=== PATIENT | female | born 1935 | race Caucasian/White ===

== ENCOUNTER 2019-02-22 19:12 | Inpatient (IN) | payer MEDICARE, OTHER ==
[~2019-02-22] VITALS: Ht 162.6 cm; Wt 69.9 kg
[~2019-02-22 19:12] MED LIST: AVALIDE 300-121 EACH PO; COREG12.5 MG PO; COREG25 MG PO; HYDRALAZINE HCL25 MG PO; LEVOTHYROXINE300 MCG PO; XARELTO20 MG PO
--- OUTSIDE RECORDS SUMMARY | 2019-02-22 19:15 | XMS REPORT | Clinical Summary ---
Author Author [facility] Address Unknown Phone Unavailable Care Team Providers Care Rn Relief Charge Name Role Phone Asked, No Pcp PCP Unavailable Allergies Comments Active Allergy Reactions Severity Noted Date Amoxicillin-Pot Swelling High 05/10/2017 Clavulanate Water retention Irbesartan Other (See High 05/10/2017 Comments) Clarithromycin GI High 05/10/2017 Intolerance Clonidine Shortness Of High 05/10/2017 Breath nuasea Clindamycin Other (See High 05/10/2017 Comments) Severe illness Flu Vac 2015 (67 Other (See High 05/10/2017 Up)-Mf59c(Pf) Comments) Risk for jaw infection Alendronate Other (See High 05/10/2017 Comments) Levofloxacin Shortness Of High 05/10/2017 Breath Amlodipine Swelling High 05/10/2017 Penicillins Rash High 05/10/2017 Pain,shaking Nisoldipine Other (See High 05/10/2017 Comments) Nausea, dizziness,high blood pressure Hydrocodone-Guaifenesin Other (See High 05/10/2017 Comments) Medications End Date Status Medication Sig Dispensed Refills Start Date Active levothyroxine (SYNTHROID, Take 75 mcg 0 LEVOXYL) 75 mcg tablet by mouth every morning. Active carvedilol CR (COREG CR) Take 40 mg by 0 40 MG 24 hr capsule mouth daily. 20 mg at night Active rivaroxaban (XARELTO) 20 Take 20 mg by 0 mg tablet mouth nightly. Active cholecalciferol, vitamin Take 2,000 0 D3, (VITAMIN D3) 2,000 Units by unit capsule capsule mouth daily. Active Problems Not on file Social History Date Tobacco Use Types Packs/Day Years Used Never Assessed Sex Assigned at Date Recorded Not on file Industry Job Start Date Occupation Not on file Not on file Not on file Travel End Travel History Travel Start No recent travel history available. Last Filed Vital Signs Not on file Plan of Treatment Health Maintenance Due Date Last Done Comments SHINGLES VACCINES (#1) 1987 65+ PNEUMOCOCCAL VACCINE 2002 (1 of 2 - PCV13) PNEUMOCOCCAL 2002 POLYSACCHARIDE VACCINE AGE 65 AND OVER INFLUENZA VACCINE 06/12/2019 Results Not on fileafter 02/21/2018 Insurance Payer Benefit Subscriber ID Type Phone Address Plan / Group xxxxxxxxx MEDICARE MEDICARE xxxxxxxxxx Medicare [place], [place] PART A AND B Advance Directives Patient has advance care planning documents on file. For more information, alexandrea bee contact: Terry Hernandez [address] [place] [address]
[2019-02-22] MEDS ORDERED: IPRATROPIUM BROMIDE 0.02% 2.5 ML NEB NEB STA (19:28)
[2019-02-22] MEDS ORDERED: ALBUTEROL SULF 0.083% NEB SOLN 3 ML NEB NEB STA (19:28)
[2019-02-22] MEDS ORDERED: SODIUM CHLORIDE 0.9% 500ML 500 ML IV STA (19:28)
[2019-02-22] MEDS ORDERED: BUMETANIDE1 MG PO (20:34)
[2019-02-22] MEDS ORDERED: COREG3.125 MG (20:34)
[2019-02-22] MEDS ORDERED: LEVOTHYROXINE50 MCG PO (20:34)
[2019-02-22] MEDS ORDERED: LOSARTAN POTASS25 MG (20:34)
--- NOTE | 2019-02-22 20:34 | Diagnostic Imaging Report ---
EXAMINATION: CXR 2 VIEW - HOPD INDICATION: Cough. Shortness of breath. COMPARISON: None FINDINGS: TUBES and LINES: None. LUNGS: Lungs are well inflated. Bilateral peribronchial cuffing. Possible right hilar airspace opacity. PLEURA: No pleural effusion or pneumothorax. HEART AND MEDIASTINUM: Cardiac size is moderately enlarged. There are atherosclerotic calcifications within the aorta. BONES AND SOFT TISSUES: No acute osseous lesion. Soft tissues are unremarkable. UPPER ABDOMEN: No free air under the diaphragm. IMPRESSION: 1. Bilateral peribronchial cuffing, which could represent viral etiology or reactive airway disease. 2. Possible right infrahilar consolidative pneumonia. Signed by: Dr. Gabriel Carreno M.D. on 02/22/2019 8:31 PM
[2019-02-22] MEDS ORDERED: ENALAPRILAT IV INJ 1.25 MG/ML VIAL IV PRN (20:45)
[2019-02-22] MEDS ORDERED: MORPHINE SULFATE INJ 4 MG/ML INJ 1ML IV PRN (20:45)
[2019-02-22] MEDS ORDERED: ZOLPIDEM TARTRATE 5 MG TAB PO PRN (20:45)
[2019-02-22] MEDS ORDERED: DIPHENHYDRAMINE HCL INJ 50 MG/ML VIAL IV PRN (20:45)
--- OUTSIDE RECORDS SUMMARY | 2019-02-22 20:55 | XMS REPORT ---
Author [facility] Address Unknown Phone Unavailable Care Team Providers Care Carpet Or Rug Layer Helper Name Role Phone Sesar ZAMBRANO Unavailable Unavailable Problems This patient has no known problems. Allergies, Adverse Reactions, Alerts This patient has no known allergies or adverse reactions. Medications This patient has no known medications. Results Test Description Test Time Test Comments Text Results Atomic Results Result Comments CXR 2 VIEW - HOPD 2019-02-22 20:29:00 [place] [id number] Patient Name: AIDNE CLANCY MR #: [id number] : 1935 Age/Sex: 83/F Req #: [id number] Adm Physician: Ordered by: KWAN ZAMBRANO MD Report #: [id number] Location: [facility] Room/Bed: Procedure: [id number] HOPD/CXR 2 VIEW - HOPD Exam Date: 02/22/19 Exam Time: 2019 REPORT STATUS: Signed EXAMINATION: CXR 2 VIEW - HOPD INDICATION: Cough. Shortness of breath. COMPARISON: None FINDINGS: TUBES and LINES: None. LUNGS: Lungs are well inflated. Bilateral peribronchial cuffing. Possible right hilar airspace opacity. PLEURA: No pleural effusion or pneumothorax. HEART AND MEDIASTINUM: Cardiac size is moderately enlarged. There are atherosclerotic calcifications within the aorta. BONES AND SOFT TISSUES: No acute osseous lesion. Soft tissues are unremarkable. UPPER ABDOMEN: No free air under the diaphragm. IMPRESSION: 1. Bilateral peribronchial cuffing, which could represent viral etiology or reactive airway disease. 2. Possible right infrahilar consolidative pneumonia. Signed by: Dr. Flory Carreno M.D. on 02/22/2019 8:31 PM Dictated By: FLORY CARRENO MD 30 Transcribed By: NASRIN on 02/22/192030 COPY TO: KWAN ZAMBRANO MD
--- OUTSIDE RECORDS SUMMARY | 2019-02-22 20:55 | XMS REPORT | Clinical Summary ---
Author Author [facility] Organization [facility] Address Unknown Phone Unavailable Care Team Providers Care Extractive Metallurgist Name Role Phone Asked, No Pcp PCP [...] / Group xxxxxxxxx MEDICARE MEDICARE xxxxxxxxxx Medicare [place], [place] PART A AND B Advance Directives Patient has advance care planning documents on file. For more information, alexandrea bee contact: Terry Hernandez [address] [place] [address]
[2019-02-22] MEDS ORDERED: HYDRALAZINE HCL 20 MG/ML VIAL IV STA (20:58)
[2019-02-22] MEDS ORDERED: NITROGLYCERIN 2% OINT 1 GM PKT TOP ONE (21:00)
--- NOTE | 2019-02-22 21:16 | NUR ---
pt refusing medication for lowering BP and only wants bp medication from home. waiting for BP meds from pharmacy from across the street in order to get pt's BP lowered in order to get pt admitted across the street.
[2019-02-22] MEDS ORDERED: CARVEDILOL 12.5 MG TAB ONE (21:21)
--- NOTE | 2019-02-22 21:45 | NUR ---
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 Pt was given the gentamycin that was brought over by the main ER. Pt is refusing the enalapril at this time. Took a manual BP per their request as they stated the monitor BP was wrong and manual BP was 198/118. Monitor BP is charted which was 203/118.
[2019-02-22] MEDS: GENTAMICIN 80MG/NS IV SCH (21:50)
[2019-02-22] MEDS ORDERED: AZTREONAM 2 GM VIAL IV SCH (22:00)
--- NOTE | 2019-02-22 22:42 | NUR ---
Pt BP is 204/97, pt daughter is refusing to let the pt have IV BP medication so she is giving the pt her PO 50 mg of Losartan. I explained to the pt and the daughter that we really do not like pts taking their own medication and the daughter became defensive and stated that Dr. Arellano told her that they are allowed to because she has so many allergies. I explained that I am sure that she has alot of allergies but so do many other people and I have rarely seen cases where pts take their own meds unless it is a rare medication that pharmacies do not carry. Daughter became very defensive and stated that she has been doing this a long time and she does not want her mother to have another stroke so she will give medications to get the BP down and they will not take any other medication.
[2019-02-22] MEDS: CARVEDILOL 40 MG CAPCR PO SCH (22:56)
--- NOTE | 2019-02-22 23:50 | NUR ---
Family brought their own manual BP cuff and stethoscope and took the BP and stated that the BP is 152/78 and RN took the manual BP and got a reading of 178/92. Family scoffed and said that this should be good enough to go across the street to her room, I explained to the family that I would call report and see.
[2019-02-23] VITALS (8 sets, daily range): BP systolic 137–193; BP diastolic 74–93
--- NOTE | 2019-02-23 00:07 | NUR ---
Report to JANNA Soto
--- NOTE | 2019-02-23 00:08 | NUR ---
Called [facility] for transport to [facility] to go to room 176
[2019-02-23] MEDS: IPRATROPIUM BROMIDE 0.02% 2.5 ML NEB NEB SCH ×4 (00:20→19:42)
--- NOTE | 2019-02-23 00:35 | NUR ---
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
[2019-02-23] MEDS ORDERED: ALBUTEROL SULF 0.083% NEB SOLN 3 ML NEB NEB SCH (01:00)
--- NOTE | 2019-02-23 01:17 | NUR ---
patients blood pressure is 193/91. patients son states he will give the patient her home medication blood pressure pill. patient's son does not want mother to use prn blood pressure medication at this time. will continue to monitor patients blood pressure.
--- NOTE | 2019-02-23 01:17 | NUR ---
patient is a new admit that arived via stretcher. patient is awake and talking. patient has been transferred into bed. bed is in lowest position and call hull is within reach. will continue to monitor patient.
[2019-02-23 02:59] LABS: CREATINE KINASE MB 1.1 ng/mL (0-5.0)
--- NOTE | 2019-02-23 04:00 | NUR ---
patients blood pressure is now 141/93. will continue to monitor patients blood pressure.
--- NOTE | 2019-02-23 06:55 | NUR ---
report given to day nurse. patient is resting comfortably in bed. bed is in lowest position and call light is within reach.
--- NOTE | 2019-02-23 06:58 | NUR ---
6am antibiotic is not available in facility. awaiting for pharmacist to arrive to make aware of situation.
[2019-02-23 07:03] LABS: BASOPHILS % 0.2 % (0.0-1.0); EOSINOPHILS % 0.4 % (0.0-6.0); HEMATOCRIT 37.3 % (34.2-44.1); HEMOGLOBIN 12.5 g/dL (12.0-16.0); LYMPHOCYTES # (AUTO) 1.5 (1.0-3.2); LYMPHOCYTES % 30.6 % (18.0-39.1); MEAN CORPUSCULAR HEMOGLOBIN 30.6 pg (28-32); MEAN CORPUSCULAR HGB CONC 33.5 g/dL (31-35); MEAN CORPUSCULAR VOLUME 91.4 fL (81-99); MONOCYTES # (AUTO) 0.9 (0.2-0.8); MONOCYTES % 18.2 % (4.4-11.3); NEUTROPHILS # (AUTO) 2.4 (2.1-6.9); NEUTROPHILS % 50.4 % (38.7-80.0); PLATELET COUNT 165 x10e3/uL (140-360); RED BLOOD COUNT 4.08 x10e6/uL (3.6-5.1)
[2019-02-23 07:23] LABS: ANION GAP 9.5 mmol/L (8-16); BLOOD UREA NITROGEN 6 mg/dL (7-26); BUN/CREATININE RATIO 11 (6-25); CALCIUM 8.7 mg/dL (8.4-10.2); CARBON DIOXIDE 25 mmol/L (22-29); CHLORIDE 97 mmol/L (98-107); CREATININE, SERUM 0.57 mg/dL (0.57-1.11); EST GLOMERULAR FILTRATION RATE > 60 ML/MIN (60-); GLUCOSE 98 mg/dL (74-118); POTASSIUM 3.5 mmol/L (3.5-5.1); SODIUM 128 mmol/L (136-145)
--- NOTE | 2019-02-23 07:23 | NUR ---
Notified Dr. rAellano, who is rounding now, that pt meets inpatient per [facility] guidelines. Requested inpatient order if he agrees.
--- NOTE | 2019-02-23 07:37 | History and Physical ---
An 83-year-old female comes with cough, congestion and altered mental status. HISTORY OF PRESENT ILLNESS: . Bre Brooks who went [place] the [place] on [place] started with some cough which was dry and chest pain and had some shortness of breath and the patient came with moderate amount of illness and sick appearing. Came to emergency room, was found to have chest discomfort and difficulty breathing, fever and chills and questionable altered mental status. The patient then was admitted to the hospital for pneumonia. PAST MEDICAL HISTORY: 1. History of chronic lymphoma. 2. History of hypertension. 3. History of atrial fibrillation. 4. History of hypothyroidism. MEDICINES: She takes at home are: 1. Bumex 1 mg daily. 2. Coreg mg daily. 3. Levothyroxine 50 mcg daily. 4. Losartan 25 mg daily. 5. Xarelto 20 mg daily. SURGICAL HISTORY: History of hysterectomy. ALLERGIES: THE PATIENT IS ALLERGIC TO ACETAMINOPHEN, ALENDRONATE, AMLODIPINE, AMOXICILLIN, AZITHROMYCIN, CEPHALEXIN, CLARITHROMYCIN, CLAVULANIC ACID, CLONIDINE, HYDROCODONE, IRBESARTAN AND FOR ADDITIONAL INFORMATION, PLEASE LOOK INTO THE CHART. FAMILY HISTORY: Positive for hypertension only. No heart disease. REVIEW OF SYSTEMS: Positive for chest pain. Some shortness of breath. No nausea, vomiting, or diarrhea. No constipation. No rectal bleeding. No hematochezia. No hematemesis. PHYSICAL EXAMINATION: GENERAL: On examination, the patient is sick appearing. VITAL SIGNS: Temperature is 100.0, T-max was 100.0, pulse of 103, respirations of 22, blood pressure is 178/92, pulse oximetry of 94% on 2 L of oxygen. HEENT: Normocephalic, atraumatic. Pupils are reactive to light and accommodation. CVS: S1 and S2, regular. ABDOMEN: Nontender, nondistended. EXTREMITIES: No clubbing, no cyanosis, no edema. LUNGS: Bilateral rhonchi present and also increased rhonchi on the right side. LABORATORY VALUES: Initial white count which was done in the outside ER was 4. Hemoglobin was 12. Chemistries were all normal. Cardiac enzymes were also normal. The patient's chest x-ray showed infiltrate in right middle lobe. EKG shows tachycardia, atrial fibrillation, rate of 92. ASSESSMENT: 1. Pneumonia. Plan: The patient is allergic to multiple medications, was given Azactam 2 g and also gentamicin q.12 hours. We will continue the same medications at this time. Albuterol and Atrovent will be given. The patient does complain some tachycardia, we might switch her to Xopenex. 2. History of hypertension. Continue with home medication. For atrial fibrillation, continue with Xarelto. Further recommendation and clinical course: The patient will have a chest x-ray in the morning tomorrow inpatient. Disposition will be depending on the chest x-ray findings tomorrow. Again, the patient has bacterial lobar pneumonia with hypoxemia and history of atrial fibrillation. The patient will be kept inpatient. MD VIKTORIYA Augustine/MODL /[id number]
--- NOTE | 2019-02-23 07:44 | NUR ---
patient's BP 191/83, Refusing any PRN bp medications, she stating that " I used to check my BP and use my own BP medications for that, PRN BP medication will drop my BP down". notified Dr Arellano, he said he aware about of that patient is very specific to take BP medications.
--- NOTE | 2019-02-23 08:21 | NUR ---
CHANGED TO INPATIENT ORDERED
[2019-02-23] MEDS: FAMOTIDINE 20 MG/2 ML VIAL IV SCH ×2 (08:36→16:50)
[2019-02-23] MEDS: CARVEDILOL 40 MG CAPCR PO SCH ×2 (08:36→17:00)
[2019-02-23] MEDS: LOSARTAN POTASSIUM 100 MG TAB PO SCH ×2 (08:37→17:00)
[2019-02-23] MEDS ORDERED: SODIUM CHLORIDE 0.9% 250ML 250 ML ONE (08:58)
[2019-02-23] MEDS: AZTREONAM 2GM/NS 100ML 100 ML IV SCH ×2 (09:13→16:52)
[2019-02-23] MEDS: LEVALBUTEROL HCL SOLN NEBU 0.63 MG/3 ML NEB INH SCH ×3 (10:00→19:42)
[2019-02-23] MEDS: ONDANSETRON HCL INJ 2MG/ML 2ML 2 MG/ML VIAL IV PRN ×2 (10:23→17:17)
[2019-02-23 10:32] LABS: CREATINE KINASE MB 0.9 ng/mL (0-5.0)
--- NOTE | 2019-02-23 19:00 | NUR ---
received report from day nurse. patient is resting comfortably in bed. bed is in lowest position and call light is within reach.
--- NOTE | 2019-02-23 20:00 | NUR ---
patient reports feeling nausea. patient's daughter states current anti-nausea medicine is not effective. MD notified via phone. received new orders for promethazine prn.
[2019-02-23] MEDS ORDERED: PROMETHAZINE 12.5MG/ NACL 0.9% 12.5 MG/50 ML BAG IV PRN (20:30)
[2019-02-23] MEDS: GENTAMICIN 80MG/NS IV SCH (21:51)
[2019-02-24] VITALS (8 sets, daily range): BP systolic 163–189; BP diastolic 75–113
[2019-02-24] MEDS: AZTREONAM 2GM/NS 100ML 100 ML IV SCH ×3 (00:42→17:04)
[2019-02-24] MEDS: LEVALBUTEROL HCL SOLN NEBU 0.63 MG/3 ML NEB INH SCH ×3 (01:10→15:15)
[2019-02-24] MEDS: IPRATROPIUM BROMIDE 0.02% 2.5 ML NEB NEB SCH ×4 (01:10→19:10)
[2019-02-24 05:36] LABS: BASOPHILS % 0.5 % (0.0-1.0); EOSINOPHILS % 0.5 % (0.0-6.0); LYMPHOCYTES # (AUTO) 1.3 (1.0-3.2); LYMPHOCYTES % 33.1 % (18.0-39.1); MEAN CORPUSCULAR HEMOGLOBIN 30.5 pg (28-32); MEAN CORPUSCULAR HGB CONC 33.3 g/dL (31-35); MEAN CORPUSCULAR VOLUME 91.4 fL (81-99); MONOCYTES # (AUTO) 0.8 (0.2-0.8); MONOCYTES % 20.9 % (4.4-11.3); NEUTROPHILS # (AUTO) 1.7 (2.1-6.9); NEUTROPHILS % 44.7 % (38.7-80.0); PLATELET COUNT 158 x10e3/uL (140-360); RED BLOOD COUNT 3.94 x10e6/uL (3.6-5.1); RED CELL DISTRIBUTION WIDTH 12.9 % (11.7-14.4)
[2019-02-24 05:50] LABS: ANION GAP 8.4 mmol/L (8-16); BLOOD UREA NITROGEN 7 mg/dL (7-26); BUN/CREATININE RATIO 12 (6-25); CALCIUM 8.5 mg/dL (8.4-10.2); CARBON DIOXIDE 25 mmol/L (22-29); CHLORIDE 99 mmol/L (98-107); CREATININE, SERUM 0.57 mg/dL (0.57-1.11); EST GLOMERULAR FILTRATION RATE > 60 ML/MIN (60-); GLUCOSE 93 mg/dL (74-118); POTASSIUM 3.4 mmol/L (3.5-5.1); SODIUM 129 mmol/L (136-145)
--- NOTE | 2019-02-24 06:57 | NUR ---
report given to day nurse. patient is resting comfortably in bed. bed is in lowest position and call light is within reach.
[2019-02-24] MEDS: CARVEDILOL 40 MG CAPCR PO SCH ×2 (09:00→17:00)
[2019-02-24] MEDS: FAMOTIDINE 20 MG/2 ML VIAL IV SCH ×2 (09:00→17:00)
[2019-02-24] MEDS: LOSARTAN POTASSIUM 100 MG TAB PO SCH ×2 (09:00→17:00)
--- NOTE | 2019-02-24 09:05 | Diagnostic Imaging Report ---
EXAMINATION: CHEST 2 VIEWS INDICATION: Pneumonia. COMPARISON: Multiple prior chest radiographs, most recently 02/22/2019. FINDINGS: TUBES and LINES: None. LUNGS: Lungs are well inflated. There are increasing patchy bilateral lower lung zone opacities. There is central vascular congestion. PLEURA: No pleural effusion or pneumothorax. HEART AND MEDIASTINUM: Cardiac size is moderately enlarged. There are atherosclerotic calcifications within the aorta. Enlarged bilateral main pulmonary arteries, not significantly changed from radiograph on 04/02/2017. BONES AND SOFT TISSUES: No acute osseous abnormality. UPPER ABDOMEN: No free air under the diaphragm. IMPRESSION: Increasing opacities in the lower lung zones, which may represent pneumonia in the appropriate clinical setting. Suggest follow-up chest radiograph in 6-8 weeks to assess for resolution. Signed by: Dr. Angel Muniz MD on 02/24/2019 9:01 AM
--- NOTE | 2019-02-24 09:14 | NUR ---
patients family giving all home meds without using hospital meds with exception of antibiotics. instructed family to let me know what they have given patient and expressed that all BP problems and associated side effects or lack thereof will be their responsibility and not that of the hospital or doctors or nurses. they acknowledged the verbal info given.
--- NOTE | 2019-02-24 10:01 | Progress Note ---
DATE: SUBJECTIVE: This is an 83-year-old female presenting with pneumonia. Currently, the patient had some difficulty with cognitive status yesterday after Phenergan was given. We will discontinue the Phenergan. The patient's nausea is controlled currently on 2 antibiotics Azactam and gentamicin. Better as per family. She was ambulating yesterday. No chest pain. Positive for shortness of breath. Positive for some audible wheezes too. PHYSICAL EXAMINATION: VITAL SIGNS: Temperature is 96.9, blood pressure is 174/75, pulse oximetry of 95% on 3 L of oxygen. GENERAL: Frail, weak, healthy lady. HEENT: Normocephalic, atraumatic. Pupils are reactive to light and accommodation. CVS: S1 and S2. Irregular rhythm. Irregularly irregular. ABDOMEN: Nontender and nondistended. EXTREMITIES: No clubbing, no cyanosis, trace edema, and positive for crackles and rhonchi in bilateral lung petty. LABORATORY VALUES: Today's values are pending. Chemistries are pending today. Toxicology, gentamicin trough is also pending. Chest x-ray has been ordered and pending. ASSESSMENT AND PLAN: 1. Pneumonia. 2. Probably viral nature. We will continue with Xopenex treatment for respiratory status and oxygen for hypoxia. 3. Encephalopathy secondary to medications. We will stop the Phenergan at this time. Continue with Zofran. Physical therapy for rehabilitation. Further recommendation per clinical course. We will continue to monitor the patient. The patient has been switched to inpatient. Awaiting labs today. The patient also has hyponatremia, which will be rechecked today. MD VIKTORIYA Augustine/MODL /[id number]
[2019-02-24] MEDS ORDERED: ONDANSETRON HCL 4 MG ORAL DISINTEGRATING TAB PO PRN (16:45)
--- NOTE | 2019-02-24 20:00 | NUR ---
INITIAL ASSESSMENT COMPLETE, PT IN BED, O2 ON, TELE ON, PT B/P HIGH, PT TAKING OWN MEDICATIONS, DR AWARE, PT AND FAMILY AWARE THEY ARE RESPONSIBLE FOR OUTCOMES, WILL RECHECK B/P, CALL LIGHT IN REACH, FAMILY MEMBER IN ROOM, NO DISTRESS NOTED
--- NOTE | 2019-02-24 20:35 | NUR ---
RECHECK ON B/P, /, FAMILY IS REFUSING MEDICATIONS, SON TO COME AND RECHECK B/P HIMSELF, HE IS A .
[2019-02-24] MEDS: GENTAMICIN 80MG/NS IV SCH (22:00)
[2019-02-25] VITALS (8 sets, daily range): BP systolic 172–193; BP diastolic 78–99
[2019-02-25] MEDS: AZTREONAM 2GM/NS 100ML 100 ML IV SCH ×3 (01:00→16:19)
[2019-02-25] MEDS: IPRATROPIUM BROMIDE 0.02% 2.5 ML NEB NEB SCH ×4 (03:02→20:35)
[2019-02-25] MEDS: LEVALBUTEROL HCL SOLN NEBU 0.63 MG/3 ML NEB INH SCH ×4 (03:02→20:35)
[2019-02-25 05:23] LABS: BASOPHILS % 0.2 % (0.0-1.0); EOSINOPHILS # (AUTO) 0.1 (0.0-0.4); EOSINOPHILS % 2.5 % (0.0-6.0); HEMATOCRIT 37.9 % (34.2-44.1); HEMOGLOBIN 12.6 g/dL (12.0-16.0); LYMPHOCYTES # (AUTO) 1.7 (1.0-3.2); LYMPHOCYTES % 31.2 % (18.0-39.1); MEAN CORPUSCULAR HGB CONC 33.2 g/dL (31-35); MEAN CORPUSCULAR VOLUME 93.1 fL (81-99); MONOCYTES # (AUTO) 0.8 (0.2-0.8); MONOCYTES % 14.7 % (4.4-11.3); NEUTROPHILS # (AUTO) 2.8 (2.1-6.9); NEUTROPHILS % 51.2 % (38.7-80.0); PLATELET COUNT 165 x10e3/uL (140-360); RED BLOOD COUNT 4.07 x10e6/uL (3.6-5.1); RED CELL DISTRIBUTION WIDTH 12.9 % (11.7-14.4)
[2019-02-25 05:43] LABS: ANION GAP 11.2 mmol/L (8-16); BLOOD UREA NITROGEN 9 mg/dL (7-26); BUN/CREATININE RATIO 14 (6-25); CALCIUM 8.8 mg/dL (8.4-10.2); CARBON DIOXIDE 28 mmol/L (22-29); CHLORIDE 98 mmol/L (98-107); CREATININE, SERUM 0.63 mg/dL (0.57-1.11); EST GLOMERULAR FILTRATION RATE > 60 ML/MIN (60-); GLUCOSE 88 mg/dL (74-118); POTASSIUM 4.2 mmol/L (3.5-5.1); SODIUM 133 mmol/L (136-145)
--- NOTE | 2019-02-25 06:40 | NUR ---
rounded with commercial installer, patient aware of change with family at bedside. call hull within reach and bed in lowest position.
[2019-02-25] MEDS ORDERED: GUAIFENESIN 200 MG/10 ML UDC PO PRN (06:45)
--- NOTE | 2019-02-25 07:01 | Progress Note ---
DATE: ADDENDUM: The patient also has dehydration with hyponatremia, hypovolemic. We will continue watching her volume status and check her BMP tomorrow. MD VIKTORIYA Augustine/MODL /[id number]
--- NOTE | 2019-02-25 07:10 | NUR ---
spoke with patient and daughter concerning medications, per patient and daughter they will be taking their own medications and will only accept IV antibiotics from the hospital. re-educated the patient and family concerning the medications and they verbalized understanding.
--- NOTE | 2019-02-25 07:16 | Progress Note ---
DATE: SUBJECTIVE: The patient has been admitted for pneumonia. The patient had a chest x-ray yesterday, which shows increasing bibasilar opacities denoting pneumonia. The patient also does feel short of breath, positive for wheezing audible and also positive for shortness of breath on exertion. She is on 3 L of oxygen currently and hypoxic. Currently still coughing, still congested. OBJECTIVE: VITAL SIGNS: Temperature is 98, afebrile for the last 48 hours, pulse of 68, respirations of 16, blood pressure is 188/99. The patient is saturating at 96% to 97% on 3 L of oxygen and nasal cannula. HEENT: Normocephalic, atraumatic. Pupils are reactive to light and accommodation. CVS: S1, S2. Regular. LUNGS: Positive for rhonchi bilaterally. Positive for inspiratory wheezes. ABDOMEN: Nontender, nondistended. EXTREMITIES: No clubbing, no cyanosis, and trace edema. LABORATORY VALUES: White count is 5.51, hemoglobin of 12.6, hematocrit of 37.9. Chemistry, sodium of 133, potassium 4.2. Toxicology, gentamicin is pending. MEDICATIONS: She is on at this time are levalbuterol, ipratropium, Azactam, carvedilol, losartan, morphine sulfate as needed, Vasotec as needed, and zolpidem 5 mg. IMAGING: The patient's imaging studies from yesterday shows increasing opacity of the lower lung zone, which may represent pneumonia in the appropriate clinical setting. Followup radiograph in 6 to 8 weeks. ASSESSMENT: 1. Pneumonia. 2. Acute respiratory hypoxia. Plan is to continue with 3 L of oxygen, and give her levalbuterol and ipratropium treatment. The patient also needs an acapella. 3. Encephalopathy secondary to medications. Phenergan has been stopped. 4. Atrial fibrillation. Continue on Xarelto. 5. Hypertension. Continue with antihypertensive medication. 6. History of lymphoma. We will continue to monitor the patient along with medications. Further recommendation and clinical course. The patient has a DVT prophylaxis with Xopenex and also will give GI prophylaxis with Pepcid. Further recommendation per clinical course. MD VIKTORIYA Augustine/MODLadi /[id number]
[2019-02-25] MEDS: FAMOTIDINE 20 MG/2 ML VIAL IV SCH ×2 (09:00→15:39)
[2019-02-25] MEDS: CARVEDILOL 40 MG CAPCR PO SCH ×2 (09:00→15:39)
[2019-02-25] MEDS: LOSARTAN POTASSIUM 100 MG TAB PO SCH ×2 (09:00→15:39)
--- NOTE | 2019-02-25 15:45 | NUR ---
report given to nurse for patient transfer. patient aware of change, alert and oriented. patient will travel via hospital bed
[2019-02-25] MEDS ORDERED: SODIUM CHLORIDE 0.9% 250ML 250 ML ONE (16:08)
--- NOTE | 2019-02-25 16:15 | NUR ---
RECEIVED PATIENT FROM OBS. PATIENT A/O X3, EVEN RESPIRATIONS ON 2LNC. TELE RUNNING AFIB. RIGHT HAND [address]. SKIN INTACT, NO EDEMA. PATIENT AMBULATORY WITH WALKER AND ASSISTANCE. PATIENT HAS A COUGH FREQUENTLY, CURRENTLY RECEIVING IV ANTIBIOTICS. CALL LIGHT IN REACH WILL CONTINUE TO MONITOR.
--- NOTE | 2019-02-25 20:10 | NUR ---
Assessment done.no resp.distress.no pain voiced.still coughing and wheezing.getting breathing treatment.nasal cannula 2l O2 on flow.ambulates with walker and stand by assistance.voided.iv left hand #22 g is patent.bed locked and in lowest position.phone and call light within reach.instructed to call for assistance as needed.bp noted 180/96.refused to take medications for high blood pressure .taking her own medications.keep monitor the pt.
[2019-02-25] MEDS: GENTAMICIN 80MG/NS IV SCH (22:29)
[2019-02-26] VITALS (12 sets, daily range): BP systolic 142–206; BP diastolic 69–102
[2019-02-26] MEDS: AZTREONAM 2GM/NS 100ML 100 ML IV SCH ×3 (00:40→16:19)
[2019-02-26] MEDS: IPRATROPIUM BROMIDE 0.02% 2.5 ML NEB NEB SCH ×4 (04:00→19:10)
[2019-02-26] MEDS: LEVALBUTEROL HCL SOLN NEBU 0.63 MG/3 ML NEB INH SCH ×4 (04:00→19:05)
--- NOTE | 2019-02-26 04:00 | NUR ---
Assisted to ambulate.back to bed safely.still coughing.refused cough medicine.
[2019-02-26 06:47] LABS: ANION GAP 8.9 mmol/L (8-16); BLOOD UREA NITROGEN 9 mg/dL (7-26); BUN/CREATININE RATIO 16 (6-25); CALCIUM 8.9 mg/dL (8.4-10.2); CARBON DIOXIDE 29 mmol/L (22-29); CHLORIDE 101 mmol/L (98-107); CREATININE, SERUM 0.56 mg/dL (0.57-1.11); EST GLOMERULAR FILTRATION RATE > 60 ML/MIN (60-); GLUCOSE 82 mg/dL (74-118); POTASSIUM 3.9 mmol/L (3.5-5.1); SODIUM 135 mmol/L (136-145)
--- NOTE | 2019-02-26 06:50 | NUR ---
Report given to oncoming rn.walking rounds done.stable condition.
[2019-02-26] MEDS: LOSARTAN POTASSIUM 100 MG TAB PO SCH ×3 (07:28→15:58)
[2019-02-26] MEDS: FAMOTIDINE 20 MG/2 ML VIAL IV SCH ×2 (07:28→15:57)
[2019-02-26] MEDS: CARVEDILOL 40 MG CAPCR PO SCH ×2 (07:28→15:57)
--- NOTE | 2019-02-26 09:47 | Progress Note ---
DATE: SUBJECTIVE: The patient is here for pneumonia. The patient is currently still fatigued, tired, and has not walked. The patient complains of shortness of breath on exertion. The patient is getting ipratropium and levalbuterol treatments every 6 hours and is on gentamicin and Azactam. OBJECTIVE: VITAL SIGNS: Temperature is 97.6, blood pressure is 187/72, pulse of 75, and pulse oximeter of 97 on 2 L of oxygen. HEENT: Normocephalic, atraumatic. Looks debilitated, weak, and tired. CVS: S1, S2. Regular. ABDOMEN: Nontender, nondistended. LUNGS: Positive for rhonchi bilaterally. EXTREMITIES: No clubbing. No cyanosis. No edema. LABORATORY VALUES: White count has been normal. Chemistries, sodium 135, potassium 3.9, BUN 8.9, creatinine of 9. Gentamicin trough is 1.1. MEDICATIONS: Levalbuterol, ipratropium, Azactam, gentamicin, carvedilol, losartan, guaifenesin, morphine sulfate as needed, and zolpidem 5 mg at nighttime. MICROBIOLOGY: No growth of blood cultures in the last 72 hours. Sputum culture grew normal respiratory raisa. IMAGING: Done on 02/24 shows worsening of pneumonia. ASSESSMENT: 1. Pneumonia. 2. Acute respiratory failure with hypoxia. Continue on oxygen. 3. Atrial fibrillation, continue on Xarelto. 4. Hypertension, continue on carvedilol and ARBs. 5. History of lymphoma. We will continue with medication and the patient has deep vein thrombosis prophylaxis and gastrointestinal prophylaxis with Pepcid. Further recommendation per clinical course. The plan and disposition, we will try to get the patient walking today. Physical Therapy to work on her and discharge home with home health in 1 to 2 days. We will continue to monitor the patient with progression of therapy. MD VIKTORIYA Augustine/ETIENNE /[id number]
--- NOTE | 2019-02-26 12:52 | NUR ---
CASE MANAGEMENT ASSESSMENT Head Cleaning Porter to bedside to discuss plan of care with patient/family. CM/SW role and care transitions discussed. Anticipated discharge plan discussed along with duration of care. CM/SW discussed patients right to make decisions in care. CM/SW work hours given. Patient lives: with Admit/Transfer: thru ED Hospital/ER visits since last admit: 0 POA/Emergency contact: daughter Annetta Brooks [phone] Current/Previous Home Health: none PCP/Follow-up Care: Dr. Sridhar Arellano; advised pt to follow up with MD within a week of discharge. Current/Previous DME: has a walker that she uses as needed Medications (referring to index hospitalization or the first time you were in the hospital) a. Were changes made in your medications when you were in the hospital on [date of index hospitalization]? n/a b. Did you understand the changes? n/a c. Were you able to obtain your new medications right away? n/a d. Were you able to take your medications like the doctor wanted you to? n/a e. Did the hospital give you an accurate, easy to understand list of medications when you left? n/a Scale of 1-10 how comfortable does patient feel with disease management in outpatient settin Other Services: none Employment Status: retired Areas of Concerns: pneumonia Referral Needs: may need home health Education Needs: pneumonia, medical management IMM/NICHOLS given and signed (if applicable): none at this time Goal for discharge: home with home health CM/SW left business card at the bedside with contact information. Name and number was also written on the patients whiteboard. Patient verbalized understanding of discussion. CM will follow-up with ongoing discharge and transition of care needs.
--- NOTE | 2019-02-26 18:25 | NUR ---
PT BP 198/91 PT TOOK OWN LOSARTAN 25MG FROM HOME. TOOK COREG 40 MG AND XARELTO 15 MG AT 1750. REFUSES PRN ENALAPRIL. DR. FARNSWORTH NOTIFIED STATES OK TO TAKE OWN HOME MEDS AND CONTINUE TO MONITOR PT. Addendum: 02/26/19 at 1828 by Saida Alfaro RN PT STATES SHE REFUSES MEDS DUE TO LONG MEDICATION ALLERGY AND FEAR OF BP DROPPING PREVIOUS EXPERIENCE CAUSED BP TO RAPIDLY DROP AND THEN HAD CVA.
--- NOTE | 2019-02-26 18:57 | NUR ---
BEDSIDE SHIFT REPORT RECEIVED FROM Aby DRUMMOND RN. RECEIVED PT LAYING SEMI FOWLERS IN BED, AAOX3, RR EVEN AND NON-LABORED, RECEIVING NEB TREATMENT. LEFT PT LAYING SEMI FOWLERS IN BED, BED IN LOW LOCKED POSITION, SIDE RAILS UPX2, CALL LIGHT AND PHONE WITHIN REACH.
[2019-02-26] MEDS: GENTAMICIN 80MG/NS 100 ML 100 ML IV SCH (21:14)
[2019-02-27] VITALS (7 sets, daily range): BP systolic 164–201; BP diastolic 77–111
[2019-02-27] MEDS: LEVALBUTEROL HCL SOLN NEBU 0.63 MG/3 ML NEB INH SCH ×4 (00:20→19:00)
[2019-02-27] MEDS: IPRATROPIUM BROMIDE 0.02% 2.5 ML NEB NEB SCH ×4 (00:20→19:00)
[2019-02-27] MEDS: AZTREONAM 2GM/NS 100ML 100 ML IV SCH ×3 (00:26→17:08)
[2019-02-27 06:10] LABS: BLOOD UREA NITROGEN 8 mg/dL (7-26); BUN/CREATININE RATIO 13 (6-25); CALCIUM 9.4 mg/dL (8.4-10.2); CARBON DIOXIDE 29 mmol/L (22-29); CHLORIDE 98 mmol/L (98-107); CREATININE, SERUM 0.62 mg/dL (0.57-1.11); EST GLOMERULAR FILTRATION RATE > 60 ML/MIN (60-); GLUCOSE 88 mg/dL (74-118); SODIUM 134 mmol/L (136-145)
[2019-02-27] MEDS: LOSARTAN POTASSIUM 100 MG TAB PO SCH ×2 (07:40→17:00)
[2019-02-27] MEDS: FAMOTIDINE 20 MG/2 ML VIAL IV SCH ×2 (07:40→17:00)
--- NOTE | 2019-02-27 07:54 | Progress Note ---
DATE: SUBJECTIVE: This is an 83-year-old female comes in with pneumonia. The patient is feeling slightly better. Still coughing, still congested and also short of breath on exertion. The patient medications include aztreonam, Azactam, Vasotec, gentamicin, guaifenesin, ipratropium, levalbuterol, and zolpidem. OBJECTIVE: VITAL SIGNS: Currently vital signs temperature is 96.4, afebrile, pulse of 88, respiration of 20, blood pressure has been running 172/77. The patient has been taken home medications, has been refusing clonidine p.r.n. O2 at 1 L. HEENT: Normocephalic, atraumatic. Pupils are reactive to light and accommodation. CVS: S1, S2. Irregular. ABDOMEN: Nontender, nondistended. EXTREMITIES: No clubbing, no cyanosis, no edema. LUNGS: Positive for rhonchi. Decreased rhonchi bilaterally and the patient is feeling better. LABORATORY VALUES: All normal. Chemistries, sodium of 134, potassium is , chloride of 98, BUN of 8, and creatinine 0.6. ASSESSMENT: 1. Pneumonia. The patient is symptomatically better. 2. Acute respiratory failure with hypoxia. Continue oxygen. 3. Atrial fibrillation. Continue on Xarelto. 4. Sepsis. Continue with antibiotics. 5. History of lymphoma. Continue with monitoring the patient and we will continue the patient on all her home medications for hypertension and for atrial fibrillation. 6. Disposition. The patient can be possibly discharged home tomorrow with physical therapy and home health. Further recommendation per clinical course, and the patient also has physical therapy at this time. MD VIKTORIYA Augustine/MODL /[id number]
[2019-02-27] MEDS: CARVEDILOL 40 MG CAPCR PO SCH ×2 (09:00→17:00)
--- NOTE | 2019-02-27 11:30 | NUR ---
Spoke with pt regarding home health order. She stated she wants to use the same home health her has but does not remember the name. Asked CM to call her daughter. Received phone call from pt's daughter Annetta who informed CM that her dad has [facility]. CM spoke to pt at bedside and informed her of home health company. She signed choice letter. Signed letter placed in chart. Copy to pt.
--- NOTE | 2019-02-27 13:14 | NUR ---
PT BP 192/80, TOOK HER OWN MED FROM HOME LOSARTAN 50 MG AT THIS TIME. REFUSES PRN BP MEDS.
--- NOTE | 2019-02-27 17:00 | NUR ---
PT BP 174/100 AGREED TO TAKE PRN VASOTEC 1.25 MG IV AT THIS TIME AFTER SPEAKING WITH SON, "DR. CLANCY", CHIROPRACTOR.
--- NOTE | 2019-02-27 17:30 | NUR ---
RECHECK BP 178/100 PT TOOK OWN HOME MED COREG 40MG AT THIS TIME. SPOKE TO SON "DR. CLANCY" AND SON ADVISED HER TO TAKE COREG BUT NOT TO TAKE ANY MORE BP MEDS.
--- NOTE | 2019-02-27 18:30 | NUR ---
BP NOW 210/100 PT REFUSES TO TAKE ADDITIONAL BP MEDS. NOTIFIED DR. FARNSWORTH, STATES THERE IS NOTHING WE CAN DO IF PT REFUSES. CONTINUE TO MONITOR PT.
[2019-02-27] MEDS: GENTAMICIN 80MG/NS 100 ML 100 ML IV SCH (20:46)
--- NOTE | 2019-02-27 20:56 | NUR ---
Dr. Arellano notified on patient's elevated blood pressure, orders received for Hydralazine 10mg IV Q4 PRN Addendum: 02/27/19 at 2056 by KB WATSON RN Orders received for Hydralazine 5 mg IV Q4
[2019-02-27] MEDS ORDERED: HYDRALAZINE HCL 20 MG/ML VIAL IV PRN (21:00)
--- NOTE | 2019-02-27 22:02 | NUR ---
Patient's BP reassessed and remains elevated. She is also c/o SOB, offered but refused neb treatments and doesn't want to take any more blood pressure medications. Oxygen provided via nasal cannula. Did inform the patient risks behind refusing any treatment and states she understands this risks. All the patient wants at this time is an ice pack placed on her head for headache.
--- NOTE | 2019-02-27 22:13 | NUR ---
Dr. Arellano informed on patient having 3 consecutive PVC's and how she refused any treatment at this time.
--- NOTE | 2019-02-28 00:20 | NUR ---
Blood pressure reassessed and remains elevated. I recommend in taking some medication to help lower blood pressure but the patient refused any at this time, stated she feels perfectly fine. Son who is a chiropractor is in the room with the patient and stated he also has been taking her blood pressure. The readings that he has been getting are within 170's (SB). I did state I took it twice and both times SB was over 200 and DB over 90. I also mentioned she has been running A fib w/ PVCs but patient and son is still refusing any treatment at this time.
[2019-02-28] MEDS: LEVALBUTEROL HCL SOLN NEBU 0.63 MG/3 ML NEB INH SCH ×2 (01:00→07:00)
[2019-02-28] MEDS: IPRATROPIUM BROMIDE 0.02% 2.5 ML NEB NEB SCH ×2 (01:00→07:00)
[2019-02-28] MEDS: AZTREONAM 2GM/NS 100ML 100 ML IV SCH ×2 (01:30→08:01)
[2019-02-28 03:41] VITALS: BP 201/111
[2019-02-28] MEDS ORDERED: FAMOTIDINE 20 MG TAB PO SCH (07:30)
[2019-02-28] MEDS ORDERED: XOPENEX HFA INH (07:40)
[2019-02-28] MEDS ORDERED: DOXYCYCLINE HY100 MG PO (07:40)
--- NOTE | 2019-02-28 07:54 | Progress Note ---
DATE: SUBJECTIVE: This patient comes in with pneumonia. The patient yesterday had elevated blood pressure, had refused to take clonidine, was given Vasotec IV. Blood pressure did come down a bit. The patient currently continues to have a high blood pressure, but the shortness of breath is better and chest pain and breathing is better. OBJECTIVE: VITAL SIGNS: Temperature is 97.8, pulse of 68, respirations of 20. The last blood pressure recorded was 201/111, but later on the patient's blood pressure did come down to 164/86. HEENT: Normocephalic, atraumatic. Pupils are reactive to light and accommodation. CVS: S1, S2, irregular. ABDOMEN: Nontender, nondistended. LUNGS: Marked decrease in rhonchi and inspiratory wheezes. EXTREMITIES: No clubbing. No cyanosis. No edema. MICROBIOLOGY: Gram stain sputum is usual respiratory raisa. Blood cultures are negative and sputum cultures otherwise are negative. LABS: All within normal limits. The patient's sodium was 134 yesterday. EGFR normal. The patient's gentamicin levels are normal too. ASSESSMENT: 1. Pneumonia. The patient is symptomatically better, can be discharged home on Xopenex today. 2. Acute respiratory failure with hypoxia. Oxygen has been discontinued. The patient is better. 3. Atrial fibrillation. Continue Xarelto. 4. Sepsis. Continue with antibiotic. 5. History of lymphoma, will be followed up with her oncologist as an outpatient basis. DISPOSITION: The patient can be discharged home today. Further recommendation as an outpatient. The patient will be followed up by me in about 1 to 2 days. Strict ER warning has been given and the patient and son by bedside has been informed about exacerbation and further recommendation were given to the patient and son. MD ODALYS AugustineJ/MODL /[id number]
[2019-02-28 08:00] VITALS: BP 138/89
[2019-02-28] MEDS: CARVEDILOL 40 MG CAPCR PO SCH (08:01)
[2019-02-28] MEDS: LOSARTAN POTASSIUM 100 MG TAB PO SCH (08:02)
--- NOTE | 2019-02-28 08:02 | NUR ---
DISCHARGE INSTRUCTIONS AND PRESCRIPTIONS GIVEN, PT VERLBALIZED UNDERSTANDING IV DC PRESSURE DRESSING APPLIED AND TAPED. PT WAS ON 02 02 L UPON SHIFT CHANGE. PT SATS 96% ON RA PT IS READY FOR DC AT THIS TIME
--- NOTE | 2019-02-28 08:03 | NUR ---
Home health referral was faxed to [facility] P [phone] / F [phone].
[2019-02-28 08:04] VITALS: BP 168/89
--- NOTE | 2019-02-28 08:40 | NUR ---
PT OFF UNIT TO HOME AT THIS TIME
--- NOTE | 2019-02-28 09:46 | NUR ---
IMM EXPLAINED, SIGNED AND PLACED ON CHART COPY IN [facility] [employer] [facility]
== END 2019-02-28 08:38 | disposition home health service (06) | DRG 193 ==
LOC: FSED 19:12 → ERHOLD 20:37 → IMCU 02-23 01:17 → OBSVTOIN 02-23 08:19 → MED/SURG 02-25 15:56
PROVIDERS: ADMIT Family Medicine; ATTEND Family Medicine
DX: J18.9 Pneumonia, unspecified organism (principal); J96.01 Acute respiratory failure with hypoxia; G93.41 Metabolic encephalopathy; E87.1 Hypo-osmolality and hyponatremia; E86.1 Hypovolemia; I10 Essential (primary) hypertension; T45.0X5A Adverse effect of antiallergic and antiemetic drugs, initial encounter; T42.6X5A Adverse effect of other antiepileptic and sedative-hypnotic drugs, initial encounter; I48.91 Unspecified atrial fibrillation; Z79.01 Long term (current) use of anticoagulants; E03.9 Hypothyroidism, unspecified; Z85.72 Personal history of non-Hodgkin lymphomas
CPT/HCPCS: 36415; 71046; 80048; 80053; 80170; 81003; 82550; 82553; 83880; 84484; 85025; 87040; 87070; 87205; 87400; 93005; 94640; 94667; 97139; 99284; G0378; J0360; J1580; J2405; J2550; J7040; J7050

== ENCOUNTER 2020-11-05 19:42 | Inpatient (IN) | payer MEDICARE, OTHER ==
[~2020-11-05] VITALS: Ht 160 cm; Wt 63.5 kg
[~2020-11-05 19:42] MED LIST changes: +BUMETANIDE1 MG PO; +COREG3.125 MG; +DOXYCYCLINE HY100 MG PO; +LEVOTHYROXINE50 MCG PO; +LOSARTAN POTASS25 MG; +XOPENEX HFA INH
[2020-11-05] MEDS ORDERED: MORPHINE SULFATE INJ 4 MG/ML INJ 1ML IV STA (21:58)
[2020-11-05] MEDS ORDERED: ONDANSETRON HCL INJ 2MG/ML 2ML 2 MG/ML VIAL IV STA (21:58)
[2020-11-05] MEDS ORDERED: ONDANSETRON HCL INJ 2MG/ML 2ML 2 MG/ML VIAL IV PRN (23:45)
[2020-11-06] VITALS (18 sets, daily range): BP systolic 124–152; BP diastolic 52–88
[2020-11-06 00:15] LABS: CREATINE KINASE MB 1.2 ng/mL (0-5.0)
[2020-11-06 00:45] LABS: BASOPHILS % 0.3 % (0.0-1.0); EOSINOPHILS # (AUTO) 0.2 (0.0-0.4); EOSINOPHILS % 2.2 % (0.0-6.0); HEMATOCRIT 37.8 % (34.2-44.1); HEMOGLOBIN 12.3 g/dL (12.0-16.0); LYMPHOCYTES # (AUTO) 1.2 (1.0-3.2); LYMPHOCYTES % 13.9 % (18.0-39.1); MEAN CORPUSCULAR HEMOGLOBIN 30.4 pg (28-32); MEAN CORPUSCULAR HGB CONC 32.5 g/dL (31-35); MEAN CORPUSCULAR VOLUME 93.6 fL (81-99); MONOCYTES # (AUTO) 0.8 (0.2-0.8); MONOCYTES % 8.5 % (4.4-11.3); NEUTROPHILS # (AUTO) 6.6 (2.1-6.9); NEUTROPHILS % 74.1 % (38.7-80.0); PLATELET COUNT 235 x10e3/uL (140-360); RED BLOOD COUNT 4.04 x10e6/uL (3.6-5.1); RED CELL DISTRIBUTION WIDTH 12.8 % (11.7-14.4)
[2020-11-06 01:00] LABS: ALANINE AMINOTRANSFERASE 26 IU/L (0-55); ALBUMIN 4.1 g/dL (3.5-5.0); ALBUMIN/GLOBULIN RATIO 1.3 (0.8-2.0); ALKALINE PHOSPHATASE 87 IU/L (40-150); ANION GAP 16.8 mmol/L (8-16); BLOOD UREA NITROGEN 11 mg/dL (7-26); BUN/CREATININE RATIO 17 (6-25); CALCIUM 9.1 mg/dL (8.4-10.2); CARBON DIOXIDE 23 mmol/L (22-29); CHLORIDE 100 mmol/L (98-107); CREATININE, SERUM 0.63 mg/dL (0.57-1.11); EST GLOMERULAR FILTRATION RATE > 60 ML/MIN (60-); GLUCOSE 117 mg/dL (74-118); POTASSIUM 3.8 mmol/L (3.5-5.1); SODIUM 136 mmol/L (136-145)
[2020-11-06 05:31] LABS: BASOPHILS % 0.1 % (0.0-1.0); EOSINOPHILS % 0.1 % (0.0-6.0); HEMATOCRIT 33.1 % (34.2-44.1); HEMOGLOBIN 11.1 g/dL (12.0-16.0); LYMPHOCYTES # (AUTO) 1.2 (1.0-3.2); LYMPHOCYTES % 11.4 % (18.0-39.1); MEAN CORPUSCULAR HEMOGLOBIN 30.7 pg (28-32); MEAN CORPUSCULAR HGB CONC 33.5 g/dL (31-35); MEAN CORPUSCULAR VOLUME 91.4 fL (81-99); MONOCYTES # (AUTO) 0.8 (0.2-0.8); MONOCYTES % 7.8 % (4.4-11.3); NEUTROPHILS # (AUTO) 8.3 (2.1-6.9); PLATELET COUNT 188 x10e3/uL (140-360); RED BLOOD COUNT 3.62 x10e6/uL (3.6-5.1); RED CELL DISTRIBUTION WIDTH 12.5 % (11.7-14.4)
[2020-11-06 05:53] LABS: ALANINE AMINOTRANSFERASE 15 IU/L (0-55); ALBUMIN 3.4 g/dL (3.5-5.0); ALBUMIN/GLOBULIN RATIO 1.3 (0.8-2.0); ALKALINE PHOSPHATASE 65 IU/L (40-150); ANION GAP 11.9 mmol/L (8-16); BLOOD UREA NITROGEN 9 mg/dL (7-26); BUN/CREATININE RATIO 15 (6-25); CALCIUM 8.4 mg/dL (8.4-10.2); CARBON DIOXIDE 26 mmol/L (22-29); CHLORIDE 99 mmol/L (98-107); EST GLOMERULAR FILTRATION RATE > 60 ML/MIN (60-); GLUCOSE 152 mg/dL (74-118); POTASSIUM 3.9 mmol/L (3.5-5.1); SODIUM 133 mmol/L (136-145)
[2020-11-06] MEDS: MORPHINE SULFATE INJ 4 MG/ML INJ 1ML IV PRN ×4 (05:57→23:27)
[2020-11-06 06:42] LABS: CREATINE KINASE MB 0.9 ng/mL (0-5.0)
[2020-11-06] MEDS: LEVOTHYROXINE SODIUM 50 MCG TAB PO SCH (07:04)
[2020-11-06] MEDS: LOSARTAN POTASSIUM 25 MG TAB PO SCH (08:10)
[2020-11-06] MEDS: DOXYCYCLINE HYCLATE TABLET 100 MG TAB PO SCH ×2 (08:10→12:59)
[2020-11-06 16:36] LABS: BASOPHILS % 0.2 % (0.0-1.0); EOSINOPHILS # (AUTO) 0.1 (0.0-0.4); EOSINOPHILS % 1.4 % (0.0-6.0); HEMOGLOBIN 11.4 g/dL (12.0-16.0); LYMPHOCYTES # (AUTO) 1.6 (1.0-3.2); LYMPHOCYTES % 16.6 % (18.0-39.1); MEAN CORPUSCULAR HEMOGLOBIN 30.4 pg (28-32); MEAN CORPUSCULAR HGB CONC 32.6 g/dL (31-35); MEAN CORPUSCULAR VOLUME 93.3 fL (81-99); MONOCYTES # (AUTO) 1.3 (0.2-0.8); MONOCYTES % 13.4 % (4.4-11.3); NEUTROPHILS # (AUTO) 6.5 (2.1-6.9); NEUTROPHILS % 68.2 % (38.7-80.0); PLATELET COUNT 195 x10e3/uL (140-360); RED BLOOD COUNT 3.75 x10e6/uL (3.6-5.1); RED CELL DISTRIBUTION WIDTH 12.9 % (11.7-14.4)
[2020-11-06 17:00] LABS: CREATINE KINASE MB 0.7 ng/mL (0-5.0)
[2020-11-07] VITALS (11 sets, daily range): BP systolic 140–165; BP diastolic 70–89
[2020-11-07] MEDS: LEVOTHYROXINE SODIUM 50 MCG TAB PO SCH (06:06)
[2020-11-07] MEDS ORDERED: MINERAL OIL 132 ML BTL PR ONE (07:45)
[2020-11-07] MEDS: DOXYCYCLINE HYCLATE TABLET 100 MG TAB PO SCH ×2 (08:08→15:30)
[2020-11-07] MEDS: POLYETHYLENE GLYCOL 3350 17 GM PACK PO SCH (08:14)
[2020-11-07] MEDS: LOSARTAN POTASSIUM 25 MG TAB PO SCH (08:14)
[2020-11-07] MEDS: DOCUSATE SODIUM 100 MG CAP PO SCH (08:14)
[2020-11-07 09:57] LABS: CLARITY,URINE CLOUDY (CLEAR); COLOR,URINE YELLOW (YELLOW); KETONES,URINE NEGATIVE (NEGATIVE); LEUKOCYTE ESTERASE ,URINE TRACE (NEGATIVE); NITRITE,URINE NEGATIVE (NEGATIVE); PROTEIN,URINE DIPSTICK 1+ (NEGATIVE); URINE UROBILINOGEN 0.2 mg/dL (0.2 - 1)
[2020-11-07 09:58] LABS: BACTERIA,URINE RARE /HPF; EPITHELIAL CELLS,URINE FEW /LPF; RBC,URINE 21-50 /HPF (0-5)
[2020-11-07] MEDS: TRAMADOL HCL 50 MG TAB PO PRN ×3 (12:53→23:52)
[2020-11-07] MEDS: RIVAROXABAN 20 MG TABLET PO SCH (16:27)
[2020-11-08] VITALS (8 sets, daily range): BP systolic 134–161; BP diastolic 49–77
[2020-11-08] MEDS: MORPHINE SULFATE INJ 2 MG/ML SYR IV PRN ×2 (01:05→16:01)
[2020-11-08] MEDS: LEVOTHYROXINE SODIUM 50 MCG TAB PO SCH (06:15)
[2020-11-08 07:29] LABS: BASOPHILS % 0.2 % (0.0-1.0); EOSINOPHILS # (AUTO) 0.1 (0.0-0.4); EOSINOPHILS % 1.1 % (0.0-6.0); HEMATOCRIT 32.3 % (34.2-44.1); HEMOGLOBIN 10.7 g/dL (12.0-16.0); LYMPHOCYTES # (AUTO) 1.8 (1.0-3.2); LYMPHOCYTES % 13.9 % (18.0-39.1); MEAN CORPUSCULAR HEMOGLOBIN 30.4 pg (28-32); MEAN CORPUSCULAR HGB CONC 33.1 g/dL (31-35); MEAN CORPUSCULAR VOLUME 91.8 fL (81-99); MONOCYTES # (AUTO) 1.9 (0.2-0.8); MONOCYTES % 14.5 % (4.4-11.3); NEUTROPHILS # (AUTO) 9.2 (2.1-6.9); NEUTROPHILS % 69.8 % (38.7-80.0); PLATELET COUNT 181 x10e3/uL (140-360); RED BLOOD COUNT 3.52 x10e6/uL (3.6-5.1); RED CELL DISTRIBUTION WIDTH 12.8 % (11.7-14.4)
[2020-11-08] MEDS: DOCUSATE SODIUM 100 MG CAP PO SCH (07:59)
[2020-11-08] MEDS: POLYETHYLENE GLYCOL 3350 17 GM PACK PO SCH (08:00)
[2020-11-08] MEDS: DOXYCYCLINE HYCLATE TABLET 100 MG TAB PO SCH ×2 (08:00→16:01)
[2020-11-08] MEDS: LOSARTAN POTASSIUM 25 MG TAB PO SCH (08:20)
[2020-11-08] MEDS ORDERED: ONDANSETRON HCL 4 MG ORAL DISINTEGRATING TAB PO PRN (11:45)
[2020-11-08] MEDS: RIVAROXABAN 20 MG TABLET PO SCH (16:01)
[2020-11-09] VITALS (8 sets, daily range): BP systolic 127–169; BP diastolic 53–76
[2020-11-09] MEDS: MORPHINE SULFATE INJ 2 MG/ML SYR IV PRN ×3 (02:26→23:25)
[2020-11-09] MEDS: LEVOTHYROXINE SODIUM 50 MCG TAB PO SCH (05:49)
[2020-11-09] MEDS: LOSARTAN POTASSIUM 25 MG TAB PO SCH (09:00)
[2020-11-09] MEDS: DOCUSATE SODIUM 100 MG CAP PO SCH (09:33)
[2020-11-09] MEDS: DOXYCYCLINE HYCLATE TABLET 100 MG TAB PO SCH ×2 (09:33→18:38)
[2020-11-09] MEDS: POLYETHYLENE GLYCOL 3350 17 GM PACK PO SCH (10:11)
[2020-11-09] MEDS: RIVAROXABAN 20 MG TABLET PO SCH (18:38)
[2020-11-09] MEDS: TRAMADOL HCL 50 MG TAB PO PRN (18:38)
[2020-11-10] VITALS (8 sets, daily range): BP systolic 136–183; BP diastolic 54–98
[2020-11-10] MEDS: LEVOTHYROXINE SODIUM 50 MCG TAB PO SCH (06:01)
[2020-11-10 07:42] LABS: BASOPHILS % 0.3 % (0.0-1.0); EOSINOPHILS # (AUTO) 0.3 (0.0-0.4); HEMATOCRIT 33.8 % (34.2-44.1); HEMOGLOBIN 11.1 g/dL (12.0-16.0); LYMPHOCYTES # (AUTO) 1.5 (1.0-3.2); LYMPHOCYTES % 16.2 % (18.0-39.1); MEAN CORPUSCULAR HGB CONC 32.8 g/dL (31-35); MEAN CORPUSCULAR VOLUME 91.4 fL (81-99); MONOCYTES # (AUTO) 1.5 (0.2-0.8); MONOCYTES % 15.2 % (4.4-11.3); NEUTROPHILS # (AUTO) 6.2 (2.1-6.9); NEUTROPHILS % 64.9 % (38.7-80.0); PLATELET COUNT 213 x10e3/uL (140-360); RED CELL DISTRIBUTION WIDTH 12.5 % (11.7-14.4)
[2020-11-10 08:00] LABS: ANION GAP 13.6 mmol/L (8-16); BLOOD UREA NITROGEN 19 mg/dL (7-26); BUN/CREATININE RATIO 33 (6-25); CALCIUM 8.7 mg/dL (8.4-10.2); CARBON DIOXIDE 24 mmol/L (22-29); CHLORIDE 93 mmol/L (98-107); CREATININE, SERUM 0.58 mg/dL (0.57-1.11); EST GLOMERULAR FILTRATION RATE > 60 ML/MIN (60-); GLUCOSE 100 mg/dL (74-118); POTASSIUM 4.6 mmol/L (3.5-5.1); SODIUM 126 mmol/L (136-145)
[2020-11-10] MEDS: DOCUSATE SODIUM 100 MG CAP PO SCH (08:18)
[2020-11-10] MEDS: DOXYCYCLINE HYCLATE TABLET 100 MG TAB PO SCH ×2 (08:18→17:40)
[2020-11-10] MEDS: POLYETHYLENE GLYCOL 3350 17 GM PACK PO SCH (08:18)
[2020-11-10] MEDS: TRAMADOL HCL 50 MG TAB PO PRN ×2 (08:22→17:46)
[2020-11-10] MEDS: LOSARTAN POTASSIUM 25 MG TAB PO SCH (08:25)
[2020-11-10] MEDS: RIVAROXABAN 20 MG TABLET PO SCH (17:40)
[2020-11-11] VITALS: BP 159/66
[2020-11-11 04:00] VITALS: BP 170/65
[2020-11-11] MEDS: LEVOTHYROXINE SODIUM 50 MCG TAB PO SCH (05:44)
[2020-11-11 07:34] LABS: ANION GAP 12.6 mmol/L (8-16); BLOOD UREA NITROGEN 16 mg/dL (7-26); BUN/CREATININE RATIO 30 (6-25); CALCIUM 8.8 mg/dL (8.4-10.2); CARBON DIOXIDE 24 mmol/L (22-29); CHLORIDE 95 mmol/L (98-107); CREATININE, SERUM 0.54 mg/dL (0.57-1.11); EST GLOMERULAR FILTRATION RATE > 60 ML/MIN (60-); GLUCOSE 106 mg/dL (74-118); POTASSIUM 4.6 mmol/L (3.5-5.1); SODIUM 127 mmol/L (136-145)
[2020-11-11 08:35] VITALS: BP 161/69
[2020-11-11 08:39] VITALS: BP 161/78
[2020-11-11] MEDS: DOXYCYCLINE HYCLATE TABLET 100 MG TAB PO SCH ×2 (08:48→16:47)
[2020-11-11] MEDS: LOSARTAN POTASSIUM 25 MG TAB PO SCH (08:49)
[2020-11-11] MEDS: DOCUSATE SODIUM 100 MG CAP PO SCH (08:53)
[2020-11-11] MEDS: POLYETHYLENE GLYCOL 3350 17 GM PACK PO SCH (08:55)
[2020-11-11 11:58] VITALS: BP 159/66
[2020-11-11 15:59] VITALS: BP 181/81
[2020-11-11] MEDS: MORPHINE SULFATE INJ 2 MG/ML SYR IV PRN (16:10)
[2020-11-11] MEDS: RIVAROXABAN 20 MG TABLET PO SCH (16:47)
== END 2020-11-11 18:51 | disposition home or self-care (01) | DRG 536 ==
LOC: ER 19:55 → ERHOLD 11-06 00:27 → MED/SURG 11-06 01:13
PROVIDERS: ADMIT Family Medicine; ATTEND Family Medicine
DX: S32.592A Other specified fracture of left pubis, initial encounter for closed fracture (principal); E87.1 Hypo-osmolality and hyponatremia; N39.0 Urinary tract infection, site not specified; S32.502A Unspecified fracture of left pubis, initial encounter for closed fracture; I48.91 Unspecified atrial fibrillation; D64.9 Anemia, unspecified; I10 Essential (primary) hypertension; Z85.72 Personal history of non-Hodgkin lymphomas; B96.4 Proteus (mirabilis) (morganii) as the cause of diseases classified elsewhere; B95.2 Enterococcus as the cause of diseases classified elsewhere; W01.0XXA Fall on same level from slipping, tripping and stumbling without subsequent striking against object, initial encounter; Z86.73 Personal history of transient ischemic attack (TIA), and cerebral infarction without residual deficits; I25.10 Atherosclerotic heart disease of native coronary artery without angina pectoris; R31.9 Hematuria, unspecified; E03.9 Hypothyroidism, unspecified; Z20.828 Contact with and (suspected) exposure to other viral communicable diseases
CPT/HCPCS: 36415; 70450; 72125; 80048; 80053; 81001; 82550; 82553; 84484; 85025; 87086; 87186; 93005; 97139; 99284; J2270; J2405; Q0162; U0002

== ENCOUNTER 2022-02-16 00:01 | Inpatient (IN) | payer MEDICARE, OTHER ==
[~2022-02-16] VITALS: Ht 160 cm; Wt 63.5 kg
[2022-02-16] VITALS (9 sets, daily range): BP systolic 133–179; BP diastolic 62–89
[2022-02-16 00:32] LABS: BASOPHILS % 0.6 % (0.0-1.0); EOSINOPHILS # (AUTO) 0.1 (0.0-0.4); EOSINOPHILS % 2.2 % (0.0-6.0); HEMATOCRIT 23.4 % (34.2-44.1); LYMPHOCYTES # (AUTO) 1.3 (1.0-3.2); LYMPHOCYTES % 24.8 % (18.0-39.1); MEAN CORPUSCULAR HEMOGLOBIN 18.5 pg (28-32); MEAN CORPUSCULAR HGB CONC 26.9 g/dL (31-35); MEAN CORPUSCULAR VOLUME 68.8 fL (81-99); MONOCYTES # (AUTO) 0.7 (0.2-0.8); MONOCYTES % 13.8 % (4.4-11.3); NEUTROPHILS # (AUTO) 3.1 (2.1-6.9); NEUTROPHILS % 58.4 % (38.7-80.0); PLATELET COUNT 333 x10e3/uL (140-360); RED CELL DISTRIBUTION WIDTH 18.1 % (11.7-14.4)
[2022-02-16 00:35] LABS: HEMOGLOBIN 6.3 g/dL (12.0-16.0)
[2022-02-16 00:49] LABS: PARTIAL THROMBOPLASTIN TIME 55.8 seconds (23.8-35.5)
[2022-02-16 00:51] LABS: PROTHROMBIN TIME 55.1 seconds (11.9-14.5)
[2022-02-16 00:52] LABS: ANION GAP 12.6 mmol/L (8-16); CALCIUM 9.5 mg/dL (8.4-10.2); CREATININE, SERUM 0.82 mg/dL (0.57-1.11); INR 5.72; POTASSIUM 4.6 mmol/L (3.5-5.1)
[2022-02-16] MEDS ORDERED: SODIUM CHLORIDE FLUSH 10 ML SYR INJ PRN (01:00)
[2022-02-16] MEDS ORDERED: SODIUM CHLORIDE 0.9% 250ML 250 ML IV ONE (01:00)
[2022-02-16] MEDS ORDERED: SODIUM CHLORIDE 0.9% 250ML 250 ML ONE ×2 (03:16→08:17)
[2022-02-16] MEDS: FUROSEMIDE INJ 10 MG/ML 2 ML VIAL IV PRN ×2 (06:34→12:20)
[2022-02-16] MEDS ORDERED: PHYTONADIONE 1 MG/0.5 ML AMP IM ONE (14:00)
[2022-02-16] MEDS ORDERED: PHYTONADIONE 10 MG/ML AMP IM ONE (14:30)
[2022-02-16] MEDS: CARVEDILOL 12.5 MG TAB PO SCH (21:05)
[2022-02-17] VITALS (7 sets, daily range): BP systolic 115–143; BP diastolic 54–90
[2022-02-17 04:59] LABS: BASOPHILS % 0.7 % (0.0-1.0); EOSINOPHILS # (AUTO) 0.2 (0.0-0.4); EOSINOPHILS % 3.5 % (0.0-6.0); HEMATOCRIT 26.4 % (34.2-44.1); HEMOGLOBIN 7.6 g/dL (12.0-16.0); LYMPHOCYTES # (AUTO) 1.5 (1.0-3.2); LYMPHOCYTES % 33.8 % (18.0-39.1); MEAN CORPUSCULAR HGB CONC 28.8 g/dL (31-35); MEAN CORPUSCULAR VOLUME 72.9 fL (81-99); MONOCYTES # (AUTO) 0.7 (0.2-0.8); MONOCYTES % 15.6 % (4.4-11.3); NEUTROPHILS # (AUTO) 2.1 (2.1-6.9); NEUTROPHILS % 46.4 % (38.7-80.0); PLATELET COUNT 268 x10e3/uL (140-360); RED BLOOD COUNT 3.62 x10e6/uL (3.6-5.1); RED CELL DISTRIBUTION WIDTH 20.6 % (11.7-14.4)
[2022-02-17 05:07] LABS: INR 1.55; PROTHROMBIN TIME 19.9 seconds (11.9-14.5)
[2022-02-17 05:08] LABS: PARTIAL THROMBOPLASTIN TIME 38.2 seconds (23.8-35.5)
[2022-02-17 05:29] LABS: ALBUMIN 3.4 g/dL (3.5-5.0); ALBUMIN/GLOBULIN RATIO 1.2 (0.8-2.0); ANION GAP 11.9 mmol/L (8-16); CALCIUM 8.8 mg/dL (8.4-10.2); CREATININE, SERUM 0.77 mg/dL (0.57-1.11); POTASSIUM 3.9 mmol/L (3.5-5.1)
[2022-02-17] MEDS: CARVEDILOL 12.5 MG TAB PO SCH ×2 (08:33→16:59)
[2022-02-17] MEDS ORDERED: BISACODYL 5 MG TAB EC PO ONE ×2 (23:15→23:45)
[2022-02-17] MEDS ORDERED: PHYTONADIONE 10 MG/ML AMP IV ONE (23:30)
[2022-02-17 23:41] LABS: % IRON SATURATION 3 % (15-50); IRON 15 ug/dL (50-170); TOTAL IRON BINDING CAPACITY 490 ug/dL (261-478); TRANSFERRIN 350 mg/dL (180-382)
[2022-02-18] VITALS (9 sets, daily range): BP systolic 113–161; BP diastolic 52–100
[2022-02-18] MEDS ORDERED: SODIUM CHLORIDE 0.9% 250ML 250 ML ONE ×2 (00:32→03:17)
[2022-02-18] MEDS ORDERED: CITRATE OF MAGNESIA 300ML BOTTLE PO ONE ×3 (05:00→07:00)
[2022-02-18] MEDS: LEVOTHYROXINE SODIUM 50 MCG TAB PO SCH (05:31)
[2022-02-18 06:37] LABS: BASOPHILS % 0.3 % (0.0-1.0); EOSINOPHILS # (AUTO) 0.2 (0.0-0.4); EOSINOPHILS % 2.5 % (0.0-6.0); HEMATOCRIT 29.5 % (34.2-44.1); HEMOGLOBIN 8.2 g/dL (12.0-16.0); LYMPHOCYTES # (AUTO) 0.9 (1.0-3.2); LYMPHOCYTES % 14.4 % (18.0-39.1); MEAN CORPUSCULAR HEMOGLOBIN 20.5 pg (28-32); MEAN CORPUSCULAR HGB CONC 27.8 g/dL (31-35); MEAN CORPUSCULAR VOLUME 73.8 fL (81-99); MONOCYTES # (AUTO) 0.7 (0.2-0.8); MONOCYTES % 10.9 % (4.4-11.3); NEUTROPHILS # (AUTO) 4.3 (2.1-6.9); NEUTROPHILS % 71.7 % (38.7-80.0); PLATELET COUNT 284 x10e3/uL (140-360); RED CELL DISTRIBUTION WIDTH 21.6 % (11.7-14.4)
[2022-02-18 06:55] LABS: INR 1.16; PROTHROMBIN TIME 15.8 seconds (11.9-14.5)
[2022-02-18 07:01] LABS: ANION GAP 12.7 mmol/L (8-16); CREATININE, SERUM 0.78 mg/dL (0.57-1.11); POTASSIUM 3.7 mmol/L (3.5-5.1)
[2022-02-18 07:02] LABS: ALBUMIN 4.1 g/dL (3.5-5.0); ALBUMIN/GLOBULIN RATIO 1.2 (0.8-2.0); CALCIUM 9.8 mg/dL (8.4-10.2)
[2022-02-18] MEDS ORDERED: BISACODYL 5 MG TAB EC PO ONE (08:15)
[2022-02-18] MEDS: CARVEDILOL 12.5 MG TAB PO SCH ×2 (08:42→17:19)
[2022-02-18] MEDS: LOSARTAN POTASSIUM 25 MG TAB PO SCH (08:43)
[2022-02-18] MEDS ORDERED: MIDAZOLAM HCL 2 MG/2 ML VIAL ONE (12:04)
[2022-02-18] MEDS ORDERED: LIDOCAINE HCL 2% LOCAL INJ 5 ML SDV VIAL INJ ONE (12:25)
[2022-02-18] MEDS ORDERED: PROPOFOL IV EMULSION 10 MG/ML 20 ML VIAL ONE (12:25)
[2022-02-18] MEDS ORDERED: GLUCAGON FOR INJ 1 MG VIAL ONE (12:25)
[2022-02-18] MEDS ORDERED: HYOSCYAMINE SULFATE 0.5 MG/ML INJ ONE (12:41)
[2022-02-18] MEDS: IRON SUCROSE 100 MG in SODIUM CHLORIDE 0.9% 100 ML 100 ML IV SCH (17:19)
[2022-02-19] VITALS: BP 141/74
[2022-02-19 04:00] VITALS: BP 140/62
[2022-02-19] MEDS: LEVOTHYROXINE SODIUM 50 MCG TAB PO SCH (05:25)
[2022-02-19 06:32] LABS: BASOPHILS % 0.6 % (0.0-1.0); EOSINOPHILS # (AUTO) 0.1 (0.0-0.4); EOSINOPHILS % 2.8 % (0.0-6.0); HEMATOCRIT 27.4 % (34.2-44.1); HEMOGLOBIN 7.8 g/dL (12.0-16.0); LYMPHOCYTES # (AUTO) 1.3 (1.0-3.2); LYMPHOCYTES % 26.5 % (18.0-39.1); MEAN CORPUSCULAR HEMOGLOBIN 20.7 pg (28-32); MEAN CORPUSCULAR HGB CONC 28.5 g/dL (31-35); MEAN CORPUSCULAR VOLUME 72.7 fL (81-99); MONOCYTES # (AUTO) 0.7 (0.2-0.8); MONOCYTES % 13.7 % (4.4-11.3); NEUTROPHILS # (AUTO) 2.8 (2.1-6.9); NEUTROPHILS % 56.2 % (38.7-80.0); PLATELET COUNT 263 x10e3/uL (140-360); RED BLOOD COUNT 3.77 x10e6/uL (3.6-5.1); RED CELL DISTRIBUTION WIDTH 22.1 % (11.7-14.4)
[2022-02-19 06:58] LABS: ALBUMIN 3.5 g/dL (3.5-5.0); ALBUMIN/GLOBULIN RATIO 1.1 (0.8-2.0); ANION GAP 11.4 mmol/L (8-16); CALCIUM 9.2 mg/dL (8.4-10.2); CREATININE, SERUM 0.75 mg/dL (0.57-1.11); POTASSIUM 3.4 mmol/L (3.5-5.1)
[2022-02-19 09:00] VITALS: BP 140/62
[2022-02-19] MEDS: CARVEDILOL 12.5 MG TAB PO SCH (09:00)
[2022-02-19] MEDS: IRON SUCROSE 100 MG in SODIUM CHLORIDE 0.9% 100 ML 100 ML IV SCH (09:39)
[2022-02-19] MEDS: LOSARTAN POTASSIUM 25 MG TAB PO SCH (09:40)
== END 2022-02-19 12:05 | disposition home or self-care (01) | DRG 378 ==
LOC: ER 00:18 → OBSVTOIN 01:03 → ERHOLD 01:03 → MED/SURG2 02:09
PROVIDERS: ADMIT Family Medicine; ATTEND Family Medicine
PROC: 0DBH8ZX Excision of Cecum, Via Natural or Artificial Opening Endoscopic, Diagnostic (ICD-10-PCS; 2022-02-18)
PROC: 0DB48ZX Excision of Esophagogastric Junction, Via Natural or Artificial Opening Endoscopic, Diagnostic (ICD-10-PCS; principal; 2022-02-18 11:56)
PROC: 0DB78ZX Excision of Stomach, Pylorus, Via Natural or Artificial Opening Endoscopic, Diagnostic (ICD-10-PCS; 2022-02-18 11:56)
DX: K29.71 Gastritis, unspecified, with bleeding (principal); C85.90 Non-Hodgkin lymphoma, unspecified, unspecified site; I69.354 Hemiplegia and hemiparesis following cerebral infarction affecting left non-dominant side; D50.0 Iron deficiency anemia secondary to blood loss (chronic); I48.91 Unspecified atrial fibrillation; K74.60 Unspecified cirrhosis of liver; E03.9 Hypothyroidism, unspecified; I10 Essential (primary) hypertension; K44.9 Diaphragmatic hernia without obstruction or gangrene; D12.0 Benign neoplasm of cecum; K63.89 Other specified diseases of intestine; K64.8 Other hemorrhoids; Z82.5 Family history of asthma and other chronic lower respiratory diseases; Z80.9 Family history of malignant neoplasm, unspecified; Z88.1 Allergy status to other antibiotic agents; Z88.5 Allergy status to narcotic agent; Z88.7 Allergy status to serum and vaccine; Z88.8 Allergy status to other drugs, medicaments and biological substances; Z79.01 Long term (current) use of anticoagulants; Z20.822 Contact with and (suspected) exposure to COVID-19
CPT/HCPCS: 36415; 43239; 45385; 76705; 80048; 80053; 82105; 82270; 82378; 82607; 82746; 82977; 83540; 84466; 85025; 85045; 85610; 85730; 86039; 86301; 86850; 86900; 86920; 88305; 88312; 88342; 93005; 94799; 99251; 99284; J1610; J1756; J1940; J1980; J2001; J2250; J3430; J7050; P9016; P9017; U0002